=== PATIENT | female | born 1965 | race Caucasian/White ===

== ENCOUNTER → 2023-05-16 | Outpatient (CLI) | payer MEDICAID ==
[~2023-05-16] MED LIST: ASPIRIN81 M1 PO; ATARAX25 MG PO; BACTRIM DS 8001 TA1 PO; CIPROFLOXACIN500 MG PO; CLINDAMYCIN HC300 MG PO; CYCLOBENZAPRINE5 MG PO; DARVOCET N 1001 TAB PO; DONNATAL1 TAB PO; FLEXERIL10 MG PO; FLEXERIL5 MG PO; HYDROCODONE BIT1 T11 PO; LIDEX0.05% T; MEDROL DOSEPAK4 MG PO; MELOXICAM15 MG PO; METFORMIN500 MG PO; MOTRIN800 MG PO; NKHM; NORCO 325 MG-51 TAB PO; PHENERGAN25 M1 PO; PRAVASTATIN SOD40 MG PO; PREDNICOT10 MG PO; PREDNICOT20 MG PO; PREDNISONE10 MG PO; PREDNISONE20 MG PO; SERTRALINE HYD100 MG PO; TORADOL10 MG PO; TRAMADOL HCL50 MG PO; TRAMADOL HYDROC50 MG PO; XALATAN 0.005%2.5 ML INTRAOC; ZOLOFT50 MG PO; [UNRECOGNIZED DRUG - OTHER] PO
== END | disposition home or self-care (01) ==
LOC: MRI 14:27 → MAMMO 16:00
PROVIDERS: ATTEND Nurse Practitioner Family
DX: Z12.31 Encounter for screening mammogram for malignant neoplasm of breast (principal); N63.11 Unspecified lump in the right breast, upper outer quadrant; Z86.69 Personal history of other diseases of the nervous system and sense organs; N63.21 Unspecified lump in the left breast, upper outer quadrant; Z79.899 Other long term (current) drug therapy

== ENCOUNTER 2024-01-24 17:04 | Emergency (ER) | payer MEDICAID ==
[~2024-01-24 17:04] MED LIST changes: +ATORVASTATIN CA40 M1 PO; +METFORMIN HCL PO; +VITAMIN D350 MCG PO; +WELLBUTRIN SR100 MG PO; +ZOLOFT100 MG PO
[2024-01-24 17:15] VITALS: BP 103/67
[2024-01-24] MEDS ORDERED: ACETAMINOPHEN 325 MG TAB PO ONE (18:00)
[2024-01-24] MEDS ORDERED: Lactated Ringer's Solution 1,000 ML IV SCH (18:40)
[2024-01-24 18:54] LABS: HEMATOCRIT 41.2 % (37.0-47.0); MANUAL DIFF REFLEX YES; MEAN CELL VOLUME 88.4 fl (81.0-99.0); MEAN CORPUSCULAR HGB 27.7 pg (27.0-31.0); MEAN CORPUSCULAR HGB CONC 31.3 g/dl (33.0-37.0); MEAN PLATELET VOLUME 9.6 fl (9.6-12.3); PLATELET COUNT AUTOMATED 201 10*3/uL (130-400); RED BLOOD COUNT 4.66 10*6/uL (4.10-5.10); RED CELL DISTRI WIDTH 14.6 % (0-14.5); WHITE BLOOD COUNT 9.5 10*3/uL (4.8-10.8)
[2024-01-24 18:55] LABS: BILIRUBIN Negative (Negative); BLOOD Negative (Negative); CLARITY Cloudy (Clear); COLOR Yellow (Yellow); GLUCOSE Negative (Negative); KETONE Trace (Negative); LEUKO ESTERASE Negative (Negative); NITRITE Negative (Negative); PH 5.5 (4.5-8.0); SPECIFIC GRAVITY 1.025 (1.001-1.030)
[2024-01-24 19:11] LABS: BACTERIA 2+; EPITHELIAL CELLS 16-20; MUCOUS 1+; RBC 0-2 rbc/hpf (0-2)
[2024-01-24 19:14] LABS: ALKALINE PHOSPHATASE 107 U/L (46-116); BUN 12 mg/dl (9-23); CHLORIDE 108 mmol/L (98-107); POTASSIUM 3.7 mmol/L (3.4-5.1); SGPT/ALT 22 U/L (5-49); TOTAL PROTEIN 7.3 gm/dL (6.0-8.0)
[2024-01-24 19:23] LABS: PLATELET SUFFICIENCY NORMAL (NORMAL); TOTAL CELLS COUNTED 100 #CELLS
[2024-01-24 19:24] LABS: OVALOCYTES FEW
[2024-01-24] MEDS ORDERED: methylPREDNISolone sod succ 125 MG VIAL IM ONE (20:30)
[2024-01-24] MEDS ORDERED: PREDNISONE20 M1 PO (20:32)
[2024-01-24] MEDS ORDERED: ZITHROMAX250 MG PO (20:32)
[2024-01-24] MEDS ORDERED: methylPREDNISolone sod succ 125 MG VIAL IV ONE (20:35)
== END 2024-01-24 20:54 | disposition home or self-care (01) ==
LOC: ED 17:04
PROVIDERS: Emergency Medicine
DX: B34.9 Viral infection, unspecified (principal); Z20.822 Contact with and (suspected) exposure to COVID-19; R51.9 Headache, unspecified; R79.82 Elevated C-reactive protein (CRP); R70.0 Elevated erythrocyte sedimentation rate; R07.89 Other chest pain; R06.02 Shortness of breath; R42 Dizziness and giddiness; E78.00 Pure hypercholesterolemia, unspecified; E11.65 Type 2 diabetes mellitus with hyperglycemia; F32.A Depression, unspecified; F41.9 Anxiety disorder, unspecified; F12.90 Cannabis use, unspecified, uncomplicated; Z88.1 Allergy status to other antibiotic agents; Z88.6 Allergy status to analgesic agent; Z88.0 Allergy status to penicillin; Z88.2 Allergy status to sulfonamides; Z88.8 Allergy status to other drugs, medicaments and biological substances; Z90.710 Acquired absence of both cervix and uterus; Z98.51 Tubal ligation status; Z98.890 Other specified postprocedural states; Z87.891 Personal history of nicotine dependence

== ENCOUNTER 2024-04-12 22:56 | Emergency (ER) | payer MEDICAID ==
[~2024-04-12] VITALS: Ht 165.1 cm; Wt 120.2 kg
[~2024-04-12 22:56] MED LIST changes: +CYCLOBENZAPRINE10 MG PO; +PREDNISONE20 M1 PO; +ZITHROMAX250 MG PO
[2024-04-12 23:03] VITALS: BP 120/42
== END 2024-04-13 01:28 | disposition home or self-care (01) ==
LOC: ED 22:56
DX: R51.9 Headache, unspecified (principal); F41.9 Anxiety disorder, unspecified; F32.A Depression, unspecified; F12.90 Cannabis use, unspecified, uncomplicated; Z87.891 Personal history of nicotine dependence; Z88.1 Allergy status to other antibiotic agents; Z88.6 Allergy status to analgesic agent; Z88.2 Allergy status to sulfonamides; Z88.0 Allergy status to penicillin; Z88.8 Allergy status to other drugs, medicaments and biological substances; Z90.710 Acquired absence of both cervix and uterus; Z98.890 Other specified postprocedural states

== ENCOUNTER 2024-10-11 10:14 | Emergency (ER) | payer MEDICAID ==
[~2024-10-11] VITALS: Ht 165.1 cm; Wt 122.5 kg
[2024-10-11 10:25] VITALS: BP 120/54
[2024-10-11 10:48] LABS: BASO % 0.6 % (0.0-1.0); EOS # 0.1 10*3/uL (0.0-0.4); EOS % 1.5 % (1.0-4.0); HEMATOCRIT 36.3 % (37.0-47.0); MEAN CELL VOLUME 89.6 fl (81.0-99.0); MEAN CORPUSCULAR HGB 27.7 pg (27.0-31.0); MEAN CORPUSCULAR HGB CONC 30.9 g/dl (33.0-37.0); MEAN PLATELET VOLUME 10.2 fl (9.6-12.3); MONO # 0.5 10*3/uL (0.1-1.0); NEUT # 4.7 10*3/uL (2.3-7.9); NEUT % 68.7 % (47.0-73.0); PLATELET COUNT AUTOMATED 141 10*3/uL (130-400); RED BLOOD COUNT 4.05 10*6/uL (4.10-5.10); RED CELL DISTRI WIDTH 13.8 % (0-14.5); WHITE BLOOD COUNT 6.9 10*3/uL (4.8-10.8)
[2024-10-11 10:58] LABS: ACT PARTIAL THROMBO TIME 23.5 SECONDS (20.0-32.1)
[2024-10-11 11:10] LABS: ALKALINE PHOSPHATASE 112 U/L (46-116); BUN 14 mg/dl (9-23); CHLORIDE 105 mmol/L (98-107); POTASSIUM 4.3 mmol/L (3.4-5.1); SGPT/ALT 34 U/L (5-49); TOTAL PROTEIN 6.9 gm/dL (6.0-8.0)
[2024-10-11] MEDS ORDERED: Ondansetron Hydrochloride 4 MG/2 ML VIAL IV ONE (11:25)
[2024-10-11] MEDS ORDERED: Ondansetron Hydrochloride 4 MG TAB PO ONE (11:35)
[2024-10-11] MEDS ORDERED: IOHEXOL 300 MG/ML 100 ML VIAL IV ONE (13:30)
[2024-10-11] MEDS ORDERED: Ondansetron4 MG PO (15:26)
== END 2024-10-11 15:34 | disposition home or self-care (01) ==
LOC: ED 10:14
PROVIDERS: Emergency Medicine
DX: R07.89 Other chest pain (principal); R11.2 Nausea with vomiting, unspecified; R10.13 Epigastric pain; F17.200 Nicotine dependence, unspecified, uncomplicated; E11.9 Type 2 diabetes mellitus without complications; E78.5 Hyperlipidemia, unspecified; F32.A Depression, unspecified; F41.9 Anxiety disorder, unspecified; Z79.899 Other long term (current) drug therapy; Z88.0 Allergy status to penicillin; Z88.1 Allergy status to other antibiotic agents; Z88.2 Allergy status to sulfonamides; Z88.8 Allergy status to other drugs, medicaments and biological substances; Z90.710 Acquired absence of both cervix and uterus; Z98.890 Other specified postprocedural states